=== PATIENT | female | born 1950 | race Two or more races ===

== ENCOUNTER 2019-11-27 07:55 | Outpatient (CLI) | payer OTHER | END 2019-11-27 08:03 | disposition home or self-care (01) | LOC: SONOGRAMA 07:55 | DX: E04.2 Nontoxic multinodular goiter (principal) ==

== ENCOUNTER 2023-12-20 07:16 | Outpatient (CLI) | payer OTHER | END 2023-12-20 07:24 | disposition home or self-care (01) | LOC: TOM 07:16 | PROVIDERS: ATTEND Internal Medicine Gastroenterology | DX: K56.600 Partial intestinal obstruction, unspecified as to cause (principal) ==